=== PATIENT | male | born 1975 | race Caucasian/White ===

== ENCOUNTER 2018-12-16 17:05 | Emergency (ER) | payer OTHER ==
[~2018-12-16] VITALS: Ht 180.3 cm; Wt 80.9 kg
--- NOTE | 2018-12-16 17:20 | EKG ---
[address] [address] Test Date: 2018-12-16 Test Time: 17:17:28 Pat Name: ODALYS LACKEY Department: Room: Gender: M [employer]: [facility] : 1975 Requested By: NOEMI PARSON Order Number: [id number] Reading MD: Measurements Intervals [place] Rate: 93 P: [place]: QRS: 117 QRSD: 98 T: 56 QT: 320 QTc: 400 Interpretive Statements ACCELERATED JUNCTIONAL RHYTHM ABNORMAL RIGHT AXIS DEVIATION QRS(T) CONTOUR ABNORMALITY CONSIDER ANTEROLATERAL MYOCARDIAL DAMAGE ABNORMAL ECG RI6.01 No previous ECG available for comparison
[2018-12-16 17:23] VITALS: BP 130/71
--- NOTE | 2018-12-16 17:28 | PHYS DOC ---
Past History Past Medical History: GERD, Migraines (NOEMI PARSON DO) Smoking: Non-smoker Alcohol Use: None Drug Use: None (NOEMI PARSON DO) Adult General Chief Complaint Chief Complaint: Palpitations HPI HPI Patient is a 43-year-old male presents complaining of palpitations that began this morning. He reports borrowing a friend's apple watch and noting that his heart rate went up to 180 bpm. This is been waxing and waning since this morning. Little bit worse with exertion. Better with rest but never fully goes away. There is no pain. Some lightheadedness is noted. Patient recently traveled here from [place], via airplane, approximately a 2 hour flight, to visit a friend. He denies any out of the country travel. Denies any cough or fever. Denies any previous history of this. Patient has a history of migraines for which she takes propranolol as well as GERD for which he takes a proton pump inhibitor. No family history of cardiac issues.[] (NOEMI PARSON DO) Review of Systems Review of Systems Constitutional: Denies fever or chills [] Eyes: Denies change in visual acuity, redness, or eye pain [] HENT: Denies nasal congestion or sore throat [] Respiratory: Denies cough or shortness of breath [] Cardiovascular: No additional information not addressed in HPI [] GI: Denies abdominal pain, nausea, vomiting, bloody stools or diarrhea [] : Denies dysuria or hematuria [] Musculoskeletal: Denies back pain or joint pain [] Integument: Denies rash or skin lesions [] Neurologic: Denies headache, focal weakness or sensory changes [] Endocrine: Denies polyuria or polydipsia [] All other systems were reviewed and found to be within normal limits, except as documented in this note. (NOEMI PARSON DO) Physical Exam Physical Exam Constitutional: Well developed, well nourished, no acute distress, non-toxic appearance. [] HENT: Normocephalic, atraumatic, bilateral external ears normal, oropharynx moist, no oral exudates, nose normal. [] Eyes: PERRLA, EOMI, conjunctiva normal, no discharge. [] Neck: Normal range of motion, no tenderness, supple, no stridor. [] Cardiovascular:Heart rate regular rhythm, no murmur [] Lungs & Thorax: Bilateral breath sounds clear to auscultation [] Abdomen: Bowel sounds normal, soft, no tenderness, no masses, no pulsatile masses. [] Skin: Warm, dry, no erythema, no rash. [] Back: No tenderness, no CVA tenderness. [] Extremities: No tenderness, no cyanosis, no clubbing, ROM intact, no edema. [] Neurologic: Alert and oriented X 3, normal motor function, normal sensory function, no focal deficits noted. [] Psychologic: Affect normal, judgement normal, mood normal. [] (NOEMI PARSON DO) Current Patient Data Vital Signs Vital Signs Date Time Temp Pulse Resp B/P (MAP) Pulse Ox O2 Delivery O2 Flow Rate FiO2 12/16/18 17:15 Room Air (NOEMI PARSON DO) EKG EKG EKG shows a sinus rhythm at 93 bpm, right axis at 117, QTC of 400 ms, no ST elevation. No old EKG is available for comparison. This was interpreted by me at 1717[] (NOEMI PARSON DO) Radiology/Procedures Radiology/Procedures [] (NOEMI PARSON DO) Impressions: PORTABLE CHEST 1V Clinical indications: Palpitations. COMPARISON: None. Findings: No acute lung infiltrate or pleural effusion or pulmonary edema or lung mass or pneumothorax is seen. The heart size, pulmonary vasculature, mediastinum and both juju are unremarkable. Impression: No acute radiographic abnormality is seen. Electronically signed by: Donald Espinoza MD (12/16/2018 6:05 PM) [facility] DICTATED AND SIGNED BY: DONALD ESPINOZA MD DATE: 12/16/18 180 CC: NOEMI PARSON DO; PCP,NO ~ (LUNA EMERSON DO) Course & Med Decision Making Course & Med Decision Making Pertinent Labs and Imaging studies reviewed. (See chart for details) ED course: Patient arrived, was placed in bed, and tolerated exam well. During his stay while on the monitor, he has had no episodes of tachycardia. Laboratory testing is pending as patient care was endorsed to the nighttime physician at 1800.[] (NOEMI PARSON DO) Course & Med Decision Making The patient's labs are unremarkable except for an elevated proBNP of over 800. I have no previous for comparison. The patient does not clinically appear fluid overloaded. Rest the labs are unremarkable. The d-dimer is negative. Throughout his stay in the ED, the patient has not had a rate greater than 100. His heart rate is currently in the upper 80s with a normal blood pressure. I cannot confirm any arrhythmia at this time. I believe the patient can be safely discharged. If the symptoms return, he can return to the emergency room. He is stable for discharge at this time. (LUNA EMERSON DO) Dragon Disclaimer Dragon Disclaimer This electronic medical record was generated, in whole or in part, using a voice recognition dictation system. (NOEMI PARSON DO) Departure Departure: Impression: Primary Impression: Palpitations Disposition: 01 HOME, SELF-CARE Condition: STABLE Referrals: PCP,ASHLEY (PCP) Patient Instructions: Palpitations, [id number] NOEMI PARSON DO December 16, 2018 17:28 LUNA EMERSON DO December 16, 2018 18:22
[2018-12-16] MEDS ORDERED: IV NORMAL SALINE 1,000ML 1,000 ML IV SCH (17:30)
[2018-12-16 17:37] LABS: BASO % 0 % (0-3); EOS # 0.2 x10^3/uL (0.0-0.7); EOS % 3 % (0-3); HEMATOCRIT 46.7 % (39.0-53.0); HEMOGLOBIN 15.9 g/dL (13.0-17.5); LYMPH # 2.5 x10^3/uL (1.0-4.8); LYMPH % 29 % (24-48); MEAN CORPUSCULAR HEMOGLOBIN 30 pg (25-35); MEAN CORPUSCULAR HGB CONC 34 g/dL (31-37); MEAN CORPUSCULAR VOLUME 88 fL (79-100); MONO # 0.6 x10^3/uL (0.0-1.1); MONO % 7 % (0-9); NEUT # 5.2 x10^3uL (1.8-7.7); NEUT % 61 % (31-73); PLATELET COUNT 271 x10^3/uL (140-400); RED CELL DISTRIBUTION WIDTH 12.8 % (11.5-14.5); WHITE BLOOD COUNT 8.5 x10^3/uL (4.0-11.0)
[2018-12-16 17:52] LABS: ALBUMIN 4.2 g/dL (3.4-5.0); ALBUMIN/GLOBULIN RATIO 1.2 (1.0-1.7); GFR 82.3; MAGNESIUM 1.8 mg/dL (1.8-2.4); POTASSIUM 3.7 mmol/L (3.5-5.1); TOTAL BILIRUBIN 0.7 mg/dL (0.2-1.0); TOTAL PROTEIN 7.8 g/dL (6.4-8.2)
--- NOTE | 2018-12-16 18:07 | RAD ---
PORTABLE CHEST 1V Clinical indications: Palpitations. COMPARISON: None. Findings: No acute lung infiltrate or pleural effusion or pulmonary edema or lung mass or pneumothorax is seen. The heart size, pulmonary vasculature, mediastinum and both juju are unremarkable. Impression: No acute radiographic abnormality is seen. Electronically signed by: Edward Espinoza MD (12/16/2018 6:05 PM) [facility]
== END 2018-12-16 19:05 | disposition home or self-care (01) ==
LOC: ER 17:05
DX: R00.2 Palpitations (principal); R42 Dizziness and giddiness; K21.9 Gastro-esophageal reflux disease without esophagitis; G43.909 Migraine, unspecified, not intractable, without status migrainosus
CPT/HCPCS: 36415; 71045; 80053; 83735; 83880; 84443; 84484; 85025; 85379; 85610; 93005; 96360; 99285-25; J7030